=== PATIENT | male | born 1940 | race Native Hawaiian/Other Pacific Islander ===

== ENCOUNTER 2019-09-25 12:56 | Emergency (ER) | payer OTHER ==
[~2019-09-25] VITALS: Ht 188 cm; Wt 108.9 kg
[2019-09-25 13:09] VITALS: TEMP 97.5
[2019-09-25 13:27] LABS: PLATELET COUNT 162 K/uL (142-355)
[2019-09-25 13:43] LABS: POTASSIUM 3.9 mmol/L (3.6-5.2)
[2019-09-25 14:23] VITALS: BP 110/70
== END 2019-09-25 14:26 | disposition home or self-care (01) ==
LOC: ED 12:56
PROVIDERS: Emergency Medicine
DX: M62.830 Muscle spasm of back (principal); R73.9 Hyperglycemia, unspecified
CPT/HCPCS: 80053; 81000; 85027; 87088; 96374; 99284; J1885

== ENCOUNTER 2021-02-12 11:49 | Outpatient (CLI) | payer OTHER | END 2021-02-12 22:02 | disposition home or self-care (01) | LOC: RAD 11:49 | PROVIDERS: ATTEND Family Medicine | DX: Z03.89 Encounter for observation for other suspected diseases and conditions ruled out (principal) ==